=== PATIENT | female | born 1990 | race Caucasian/White ===

== ENCOUNTER 2018-11-08 15:29 | Observation (INO) | payer BC ==
[2018-11-08] MEDS ORDERED: Lactated Ringers 1,000 ML IV ONE (17:01)
[2018-11-08] MEDS ORDERED: hydrOXYzine Pamoate 25 MG Cap PO ONE (18:34)
[2018-11-08] MEDS: Lactated Ringers 1,000 ML IV SCH (18:35)
[2018-11-08 19:32] LABS: CHLORIDE,CL 98 mmol/L (98-107); SODIUM,NA 130 mmol/L (136-145)
[2018-11-08] MEDS ORDERED: Betamethasone Acetate/Betamethasone Sod Phosphate 30 MG/5 ML MDV IM ONE (20:19)
[2018-11-08] MEDS ORDERED: Terbutaline 1 MG/ML SDV SUBCUT ONE (20:19)
[2018-11-09] MEDS ORDERED: NIFEdipine 10 MG Cap PO SCH
[2018-11-09] MEDS: NIFEdipine 10 MG Cap PO SCH ×6 (00:37→20:50)
[2018-11-09] MEDS: Lactated Ringers 1,000 ML IV SCH (01:05)
--- NOTE | 2018-11-09 02:42 | HP ---
DATE OF : 1990 PRIMARY CARE PHYSICIAN: None PCP CHIEF COMPLAINT: Not feeling well and contractions. HISTORY: This is a 28-year-old female, G3, P1-0-1-1. She presents at 35 and 4/7 weeks' gestation with a feeling of malaise, anxiety, palpitations and some pelvic pressure. Upon arrival, she denied contractions; however, after arrival, she began having regular contractions every 1 to 2 minutes. Initially, she was closed and thick and over approximately 8-hour time period, she changed to 2 cm and 50% effaced. Therefore, decision was made to proceed with admission and management for labor. She reports good movement. She denies loss of fluid. She denies any abnormal vaginal discharge or odor. She has care with Dr. Montiel. She is blood type O positive, rubella immune, RPR negative, hepatitis B negative. Her last Pap was in September 2017 and was normal. PAST MEDICAL HISTORY: Significant for dental surgery and laparoscopic cholecystectomy. Prior hospitalization is childbirth and influenza as a child. FAMILY HISTORY: Significant for asthma, dementia and pancreatic cancer. SOCIAL HISTORY: She is , sexually active. She denies use of tobacco, alcohol, or street drugs. ALLERGY: To azithromycin which causes hives. OB HISTORY: In 2016, she had a 39-week delivery of an 8-pound 13 ounce male. In 2018, she had a first-trimester miscarriage. Current , EDC is 12/09/2018 by LMP consistent with ultrasound at 9 weeks' gestation. Her care to this point has been uncomplicated. PHYSICAL EXAMINATION: VITAL SIGNS: Blood pressure is 117/71, pulse is 78. heart tones are 130s, moderate variability, accelerations present, no decelerations. Contractions have varied from every 1 to 2 minutes to rare to every 10 minutes. GENERAL: She is alert and oriented. No acute distress. NECK: Supple without lymphadenopathy or thyromegaly. LUNGS: Clear bilaterally. CARDIOVASCULAR: Regular rate without murmur. ABDOMEN: Soft, gravid, nontender. EXTREMITIES: Show trace edema. PELVIC: Vaginal exam 2 cm, 50%, -4 station. ASSESSMENT AND PLAN: 35 and 5/7 weeks' intrauterine with threatened labor. Group B Strep culture has been obtained. She received her first dose of betamethasone at 8 p.m. on 11/08/2018, and since she did change her cervix from closed to 2 cm was given the option for transfer to [facility] versus observation without tocolysis versus tocolysis with observation and steroids, and she at this point desires oral tocolysis with nifedipine with betamethasone. Group B strep has been obtained. If she dilates to 3 to 4 cm, we will start ampicillin for group B strep prophylaxis, and otherwise continue observation with oral nifedipine, and if she is stable after 2nd dose of betamethasone, may be discharged tomorrow. KAMRON / LEIGHTON /[id number]
[2018-11-09] MEDS ORDERED: NIFEdipine 10 MG Cap PO PRN (06:40)
--- NOTE | 2018-11-09 11:46 | US ---
HISTORY: Evaluate growth. Gestational age by LMP is 36 weeks 0 days corresponding to an EDC of 12/07/2018. COMPARISON: None. FINDINGS: Single living intrauterine fetus in transverse position. Anterior placenta. No evidence for placenta previa. Amniotic fluid volume is within normal with largest deep fibers pocket 5.7 cm. heart rate of 117 beats per minute. Estimated weight of 3518 g at the 97th percentile. Estimated gestational age by today`s ultrasound 11/27/2018. IMPRESSION: Single living intrauterine fetus in transverse position. Amniotic fluid volume is within normal. Estimated weight 3518 g at the 97th percentile. Today`s measurements are at 37 weeks 3 days with EDC of 11/27/2018. The fetus is measuring 10 days larger than expected dating on today`s study. Dictated by Svitlana Koch MD @ Nov 09 2018 11:39AM Signed by Dr. Svitlana Koch @ Nov 09 2018 11:45AM
[2018-11-09 20:51] VITALS: BP 114/71
[2018-11-09] MEDS ORDERED: Betamethasone Acetate/Betamethasone Sod Phosphate 30 MG/5 ML MDV IM SCH ×2 (23:30)
== END 2018-11-09 21:39 | disposition home or self-care (01) ==
LOC: MW.OBCHECK 15:29 → MW.OB 15:32 → MW.OBCHECK 23:48
PROVIDERS: ADMIT Obstetrics & Gynecology; ATTEND Obstetrics & Gynecology
DX: O47.1 False labor at or after 37 completed weeks of gestation (principal); Z3A.37 37 weeks gestation of pregnancy; Z88.1 Allergy status to other antibiotic agents
CPT/HCPCS: 36415; 59025; 76815; 80053; 81003; 85027; 86850; 86900; 86901; 87081; 96360; 96361; 96372; A9270; G0378; J0702; J3105; J7120

== ENCOUNTER 2018-12-02 18:09 | Inpatient (IN) | payer BC ==
[2018-12-02] MEDS ORDERED: Lidocaine 1% 50 ML MDV INJECT PRN (18:13)
[2018-12-02] MEDS ORDERED: Tranexamic Acid 1,000 MG in Sodium Chloride 0.9% 100 ML IV PRN (18:13)
[2018-12-02] MEDS ORDERED: Misoprostol 200 MCG Tab PO PRN (18:13)
[2018-12-02] MEDS ORDERED: Water For Irrigation,Sterile 1,000 ML Container IRR PRN (18:13)
[2018-12-02] MEDS ORDERED: Carboprost Tromethamine 250 MCG/1 ML Amp IM PRN (18:13)
[2018-12-02] MEDS ORDERED: Sodium Chloride 0.9% 10 ML Syringe FLUSH PRN (18:13)
[2018-12-02] MEDS ORDERED: Sodium Chloride 0.9% 10 ML SDV IV PRN (18:13)
[2018-12-02] MEDS ORDERED: Methylergonovine 0.2 MG/1 ML Amp IM PRN (18:13)
[2018-12-02] MEDS ORDERED: Butorphanol 1 MG/ML SDV IVPUSH PRN (18:13)
[2018-12-02] MEDS ORDERED: Nalbuphine 10 MG/1 ML Vial IVPUSH PRN (18:13)
[2018-12-02] MEDS ORDERED: Lactated Ringers 1,000 ML IV SCH (18:15)
[2018-12-02] MEDS ORDERED: Oxytocin/0.9 % Sodium Chloride 30 UNIT/500 ML BAG IV SCH (18:15)
[2018-12-02] MEDS ORDERED: Ampicillin 2 GM in Sodium Chloride 0.9% 100 ML IV ONE (18:16)
[2018-12-02] MEDS ORDERED: fentaNYL 100 MCG/2 ML SDV ONE (19:01)
[2018-12-02] MEDS ORDERED: Bupivacaine 0.25% 10 ML SDV ONE (19:03)
--- NOTE | 2018-12-02 19:20 | PCM.PREANE ---
Preanesthetic Assessment - Procedure Proposed Procedure: FREDO for precipitous labor - Anesthesia/Transfusion/Family Hx Anesthesia History: Prior Anesthesia Without Reaction Transfusion History: No Prior Transfusion(s) - Review of Systems General: No Symptoms Pulmonary: No Symptoms Cardiovascular: No Symptoms Gastrointestinal: No Symptoms Neurological: No Symptoms Other: Reports: None - Physical Assessment Height: 1.65 m Weight: 74.843 kg ASA Class: 2E Mental Status: Alert & Oriented x3 Dentition: Reports: Normal Dentition ROM/Head Extension: Full Lungs: Clear to Auscultation Cardiovascular: Regular Rate - Lab Values: Laboratory Last Values WBC 10.66 K/uL (4.0-11.0) 12/02/18 18:23 RBC 4.68 M/uL (4.30-5.90) 12/02/18 18:23 Hgb 12.9 g/dL (12.0-16.0) 12/02/18 18:23 Hct 38.1 % (36.0-46.0) 12/02/18 18:23 MCV 81.4 fL (80.0-98.0) 12/02/18 18:23 MCH 27.6 pg (27.0-32.0) 12/02/18 18:23 MCHC 33.9 g/dL (31.0-37.0) 12/02/18 18:23 RDW Std Deviation 36.2 fl (28.0-62.0) 12/02/18 18:23 RDW Coeff of Chidi 13 % (11.0-15.0) 12/02/18 18:23 Plt Count 234 K/uL (150-400) 12/02/18 18:23 MPV 10.80 fL (7.40-12.00) 12/02/18 18:23 - Allergies Allergies/Adverse Reactions: Allergies Allergy/AdvReac Type Severity Reaction Status Date / Time azithromycin Allergy Intermediate Hives Verified 11/28/18 18:50 - Acknowledgements Anesthesia Type Planned: Epidural Pt an Appropriate Candidate for the Planned Anesthesia: Yes Alternatives and Risks of Anesthesia Discussed w Pt/Guardian: Yes Pt/Guardian Understands and Agrees with Anesthesia Plan: Yes PreAnesthesia Questionnaire Gastrointestinal History: Reports: Cholelithiasis, Irritable Bowel Syndrome [employer]IST History: Reports: - Infectious Disease History Infectious Disease History: Reports: Chicken Pox - Past Surgical History HEENT Surgical History: Reports: Oral Surgery - HOME MEDS Home Medications: Home Meds L.acidoph,Paracasei, B.lactis [Probiotic] 1 tab PO DAILY 11/08/18 [History] PNV95/Ferrous Fumarate/FA [ Tablet] 1 tab PO DAILY 11/08/18 [History] - CURRENT (IN HOUSE) MEDS Current Meds: Current Medications Butorphanol Tartrate (Stadol) 1 mg IVPUSH ASDIRECTED PRN PRN Reason: Pain Last Admin: 12/02/18 18:43 Dose: 1 mg Carboprost Tromethamine (Hemabate Ds) 250 mcg IM ASDIRECTED PRN PRN Reason: Post Hemorrhage Lactated Ringer's (Ringers, Lactated) 1,000 mls @ 150 mls/hr IV ASDIRECTED VON Last Admin: 12/02/18 18:31 Dose: 150 mls/hr Oxytocin/Sodium Chloride (Oxytocin 30 Unit/500 Ml-Ns) 30 unit in 500 mls @ 999 mls/hr IV TITRATE VON Tranexamic Acid 1,000 mg/ (Sodium Chloride) 110 mls @ 660 mls/hr IV ONETIME PRN PRN Reason: Bleeding Lidocaine HCl (Xylocaine 1%) 50 ml INJECT ONETIME PRN PRN Reason: Laceration repair Methylergonovine Maleate (Methergine) 0.2 mg IM ASDIRECTED PRN PRN Reason: Post Hemorrhage Misoprostol (Cytotec) 200 mcg PO ONETIME PRN PRN Reason: Post Hemorrhage Nalbuphine HCl (Nubain) 10 mg IVPUSH ASDIRECTED PRN PRN Reason: Pain (severe 7-10) Sodium Chloride (Saline Flush) 10 ml FLUSH ASDIRECTED PRN PRN Reason: Keep Vein Open Sodium Chloride (Normal Saline) 10 ml IV ASDIRECTED PRN PRN Reason: IV Use Sterile Water (Sterile Water For Irrigation) 1,000 ml IRR ASDIRECTED PRN PRN Reason: delivery Discontinued Medications Bupivacaine HCl (Sensorcaine-Mpf 0.25%) Confirm Administered Dose 10 ml .ROUTE .STK-MED ONE Stop: 12/02/18 19:04 Fentanyl (Sublimaze) Confirm Administered Dose 100 mcg .ROUTE .STK-MED ONE Stop: 12/02/18 19:02 Ampicillin Sodium 2 gm/ Sodium (Chloride) 100 mls @ 200 mls/hr IV ONETIME ONE Stop: 12/02/18 18:45 Last Admin: 12/02/18 18:32 Dose: 200 mls/hr Fentanyl/Bupivacaine HCl (Ntkyomia-Jipkd-Yg 2 Mcg/Ml-0.125%) Confirm Administered Dose 100 mls @ as directed .ROUTE .STK-MED ONE Stop: 12/02/18 19:02
--- NOTE | 2018-12-02 19:25 | PCM.OPNOTE ---
<Antonella Johns - Last Filed: 12/02/18 19:21> - General Post-Op/Procedure Note Date of Surgery/Procedure: 12/02/18 Operative Procedure(s): Vaginal delivery Findings: of liveborn male . Apgars 8/8. Weight pending. 3vc. Placenta intact. Pre Op Diagnosis: at 39/0 weeks IUP in labor. GBS positive, did not get full prophylaxis Post-Op Diagnosis: same Anesthesia Technique: Epidural Primary Surgeon: Genesis Nuñez Organization Development Consultant: Antonella Johns Role of Organization Development Consultant: 4th year medical student EBL in mLs: 100 Condition: Good <Genesis Nuñez - Last Filed: 12/02/18 19:44> - General Post-Op/Procedure Note Complications: none Free Text/Narrative:: H&P dictation #[id number] Op report dictation #[id number]
[2018-12-02] MEDS ORDERED: Lanolin 100% Cream 7 GM Tube TOP PRN (19:46)
[2018-12-02] MEDS ORDERED: oxyCODONE 5 MG Tab PO PRN (19:46)
[2018-12-02] MEDS ORDERED: Benzocaine/Menthol 20%-0.5% Spray 78 GM Cannister TOP PRN (19:46)
[2018-12-02] MEDS ORDERED: Simethicone 80 MG Tab.Chew PO PRN (19:46)
[2018-12-02] MEDS ORDERED: Famotidine 20 MG Tab PO PRN (19:46)
[2018-12-02] MEDS ORDERED: Acetaminophen 500 MG Tab PO PRN (19:46)
[2018-12-02] MEDS ORDERED: Witch Hazel Medicated Pads 40/Jar TOP PRN (19:46)
[2018-12-02] MEDS ORDERED: Bisacodyl 10 MG Supp RECTAL PRN (19:46)
[2018-12-02] MEDS ORDERED: diphenhydrAMINE 50 MG Cap PO PRN (19:46)
[2018-12-02] MEDS ORDERED: Docusate Sodium 100 MG Cap PO PRN (19:46)
[2018-12-02] MEDS ORDERED: Ondansetron 4 MG/2 ML SDV IVPUSH PRN (19:46)
[2018-12-02] MEDS ORDERED: Aluminum Hydroxide/Magnesium Hydroxide/Simethicone Susp 30 ML Cup PO PRN (19:46)
[2018-12-02] MEDS: Ibuprofen 800 MG Tab PO PRN (22:22)
--- NOTE | 2018-12-03 02:08 | OR ---
SURGEON: Genesis Nuñez MD DATE OF PROCEDURE: 12/02/2018 PREOPERATIVE DIAGNOSES: 1. A 28-year-old G2, P1-0-0-1, at 39 weeks and 0 days' gestation. 2. Labor. 3. Spontaneous rupture of membranes. 4. GBS positive. POSTOPERATIVE DIAGNOSES: 1. A 28-year-old G2, P1-0-0-1, at 39 weeks and 0 days' gestation. 2. Labor. 3. Spontaneous rupture of membranes. 4. GBS positive, s/p 1 dose of Ampicillin. PROCEDURE: Spontaneous vaginal delivery. PRIMARY SURGEON: Genesis Nuñez MD TIE MILL OPERATOR: Antonella oJhns, medical student. FINDINGS: A live male infant in cephalic presentation. Apgars 8 and 8 at one and five minutes respectively. Weight pending. Placenta intact and with 3-vessel cord. No perineal laceration. ESTIMATED BLOOD LOSS: 100 mL. DESCRIPTION OF PROCEDURE: The patient quickly progressed to complete cervical dilation as epidural was being placed. She pushed to spontaneous vaginal delivery of a live male with Apgars of 8 and 8 at one and five minutes respectively. Weight pending. The head was delivered followed quickly by the shoulders and the remainder of the body. The infant was placed on the maternal abdomen. The cord was clamped and cut after approximately 90 seconds of delayed cord clamping. The placenta was delivered intact and with 3-vessel cord via the Dominguez-Smallwood maneuver. The perineum was inspected, and no lacerations were noted. Fundus was firm with minimal bleeding. The patient and baby tolerated the procedure well. They are in their room in stable condition. [id number] / MODL /[id number]
--- NOTE | 2018-12-03 03:09 | HP ---
DATE OF : 1990 PRIMARY CARE PHYSICIAN: None PCP CHIEF COMPLAINT: Contractions. HISTORY OF PRESENT ILLNESS: This is a 28-year-old, G2, P1-0-0-1, at 39 weeks and 0 days gestation, complaining of contractions that began at 4:30 this afternoon. She reported positive movement. She denied vaginal bleeding and leakage of fluid. PAST MEDICAL HISTORY: History of influenza. PAST SURGICAL HISTORY: Laparoscopic cholecystectomy. PAST OBSTETRICAL HISTORY: Spontaneous vaginal delivery x1. PAST GYNECOLOGIC HISTORY: Pap smear in 2018 negative. Denies history of abnormal Pap smear. Denies history of STDs. FAMILY HISTORY: Noncontributory. SOCIAL HISTORY: Denies tobacco, alcohol, or drug abuse. MEDICATIONS: vitamins. ALLERGIES: Azithromycin. REVIEW OF SYSTEMS: Negative except as in HPI. PHYSICAL EXAMINATION: VITAL SIGNS: Blood pressure 113/77 and heart rate 95. GENITOURINARY: Sterile vaginal exam: 6, 90, -2. heart tones 120, moderate variability, positive accelerations, negative decelerations. More[place], contractions every 1 to 3 minutes. Ultrasound, cephalic. ASSESSMENT: This is a 28-year-old, , at 39 weeks 0 days gestation, in labor. PLAN: GBS positive, start ampicillin for GBS prophylaxis. While interviewing the patient, spontaneous rupture of membranes occurred with clear fluid noted. [id number] / MODL /[id number]
--- NOTE | 2018-12-03 07:27 | PCM.PNPP ---
<Antonella Johns - Last Filed: 12/03/18 07:24> - General Info Date of Service: 12/03/18 Functional Status: Reports: Pain Controlled - Review of Systems General: Reports: No Symptoms. Denies: Fever, Chills HEENT: Reports: No Symptoms. Denies: Headaches Pulmonary: Reports: No Symptoms. Denies: Shortness of Breath Cardiovascular: Reports: No Symptoms. Denies: Chest Pain, Palpitations Gastrointestinal: Reports: Abdominal Pain (Cramping with ) Genitourinary: Reports: Dysuria (mild) Musculoskeletal: Reports: No Symptoms Skin: Reports: No Symptoms Neurological: Reports: No Symptoms Psychiatric: Reports: No Symptoms - General Info Date of Service: 12/03/18 - Patient Data Vital Signs - Most Recent: Last Vital Signs Temp 97.2 F 12/03/18 04:30 Pulse 67 12/03/18 04:30 Resp 17 12/03/18 04:30 BP 110/68 12/03/18 04:30 Pulse Ox 96 12/03/18 04:30 Weight - Most Recent: 57.153 kg Lab Results - Last 24 Hours: Laboratory Results - last 24 hr 12/02/18 12/02/18 12/03/18 Range/Units 18:23 18:23 05:32 WBC 10.66 (4.0-11.0) K/uL RBC 4.68 (4.30-5.90) M/uL Hgb 12.9 10.0 L (12.0-16.0) g/dL Hct 38.1 30.0 L (36.0-46.0) % MCV 81.4 (80.0-98.0) fL MCH 27.6 (27.0-32.0) pg MCHC 33.9 (31.0-37.0) g/dL RDW Std Deviation 36.2 (28.0-62.0) fl RDW Coeff of Chidi 13 (11.0-15.0) % Plt Count 234 (150-400) K/uL MPV 10.80 (7.40-12.00) fL Blood Type O POSITIVE Antibody Screen NEGATIVE Med Orders - Current: Current Medications Acetaminophen (Tylenol Extra Strength) 500 mg PO Q4H PRN PRN Reason: Pain Acetaminophen (Tylenol Extra Strength) 1,000 mg PO Q6H PRN PRN Reason: Pain Al Hydroxide/Mg Hydroxide (Mag-Al Plus) 30 ml PO Q8H PRN PRN Reason: Heartburn Benzocaine/Menthol (Dermoplast Pain Relief 20%-0.5% Browder) 78 gm TOP ASDIRECTED PRN PRN Reason: Perineal Comfort Measure Last Admin: 12/02/18 22:23 Dose: 78 gm Bisacodyl (Dulcolax) 10 mg RECTAL ONETIME PRN PRN Reason: Constipation Butorphanol Tartrate (Stadol) 1 mg IVPUSH ASDIRECTED PRN PRN Reason: Pain Last Admin: 12/02/18 18:43 Dose: 1 mg Carboprost Tromethamine (Hemabate Ds) 250 mcg IM ASDIRECTED PRN PRN Reason: Post Hemorrhage Diphenhydramine HCl (Benadryl) 50 mg PO BEDTIME PRN PRN Reason: Insomnia Docusate Sodium (Colace) 100 mg PO BID PRN PRN Reason: Constipation Emollient Ointment (Lansinoh Hpa) 0 gm TOP ASDIRECTED PRN PRN Reason: Sore Nipples Last Admin: 12/02/18 22:23 Dose: 7 gm Famotidine (Pepcid) 20 mg PO BID PRN PRN Reason: Heartburn Lactated Ringer's (Ringers, Lactated) 1,000 mls @ 150 mls/hr IV ASDIRECTED VON Last Admin: 12/02/18 18:31 Dose: 150 mls/hr Oxytocin/Sodium Chloride (Oxytocin 30 Unit/500 Ml-Ns) 30 unit in 500 mls @ 999 mls/hr IV TITRATE [facility] Last Admin: 12/02/18 19:10 Dose: 999 mls/hr Tranexamic Acid 1,000 mg/ (Sodium Chloride) 110 mls @ 660 mls/hr IV ONETIME PRN PRN Reason: Bleeding Ibuprofen (Motrin) 800 mg PO Q8H PRN PRN Reason: Pain Last Admin: 12/02/18 22:22 Dose: 800 mg Lidocaine HCl (Xylocaine 1%) 50 ml INJECT ONETIME PRN PRN Reason: Laceration repair Methylergonovine Maleate (Methergine) 0.2 mg IM ASDIRECTED PRN PRN Reason: Post Hemorrhage Misoprostol (Cytotec) 200 mcg PO ONETIME PRN PRN Reason: Post Hemorrhage Nalbuphine HCl (Nubain) 10 mg IVPUSH ASDIRECTED PRN PRN Reason: Pain (severe 7-10) Ondansetron HCl (Zofran) 4 mg IVPUSH Q6H PRN PRN Reason: Nausea/Vomiting Oxycodone HCl (Oxycodone) 5 mg PO Q4H PRN PRN Reason: Pain Simethicone (Simethicone) 80 mg PO Q4H PRN PRN Reason: Gas Sodium Chloride (Saline Flush) 10 ml FLUSH ASDIRECTED PRN PRN Reason: Keep Vein Open Sodium Chloride (Normal Saline) 10 ml IV ASDIRECTED PRN PRN Reason: IV Use Sterile Water (Sterile Water For Irrigation) 1,000 ml IRR ASDIRECTED PRN PRN Reason: delivery Last Admin: 12/02/18 20:29 Dose: 1,000 ml Witch Tricia (Tucks) 1 pad TOP ASDIRECTED PRN PRN Reason: comfort care Discontinued Medications Bupivacaine HCl (Sensorcaine-Mpf 0.25%) Confirm Administered Dose 10 ml .ROUTE .STK-MED ONE Stop: 12/02/18 19:04 Fentanyl (Sublimaze) Confirm Administered Dose 100 mcg .ROUTE .STK-MED ONE Stop: 12/02/18 19:02 Ampicillin Sodium 2 gm/ Sodium (Chloride) 100 mls @ 200 mls/hr IV ONETIME ONE Stop: 12/02/18 18:45 Last Admin: 12/02/18 18:32 Dose: 200 mls/hr Fentanyl/Bupivacaine HCl (Akumdxob-Seter-Zj 2 Mcg/Ml-0.125%) Confirm Administered Dose 100 mls @ as directed .ROUTE .STK-MED ONE Stop: 12/02/18 19:02 - Infant Interaction Infant Disposition, : [place] in Room with Family Infant Interaction: Holding Infant Feeding: Breastfed ; Nursed Well Support Person: - Recovery Exam Fundal Tone: Firm Fundal Level: 1 Fingerbreadths Below Umbilicus Fundal Placement: Midline Lochia Amount: Small Lochia Color: Rubra/Red Perineum Description: Intact, Minimal Bruising/Swelling Episiotomy/Laceration: None Bladder Status: Nonpalpable, Voiding Urinary Elimination: Voided - Exam General: Alert, Oriented HEENT: Pupils Equal Neck: Supple Lungs: Clear to Auscultation, Normal Respiratory Effort Cardiovascular: Regular Rate, Regular Rhythm GI/Abdominal Exam: Normal Bowel Sounds, Soft, Non-Tender, No Organomegaly, No Distention, No Abnormal Bruit, No Mass, Pelvis Stable Extremities: Normal Inspection, Normal Range of Motion, Non-Tender, No Pedal Edema, Normal Capillary Refill Skin: Warm, Dry, Intact Neurological: No New Focal Deficit Psy/Mental Status: Alert, Normal Affect, Normal Mood - Problem List & Annotations (1) Vaginal delivery SNOMED Code(s): 190391697 Code(s): O80 - ENCOUNTER FOR FULL-TERM UNCOMPLICATED DELIVERY Status: Acute Current Visit: No - Problem List Review Problem List Initiated/Reviewed/Updated: Yes - Assessment Assessment:: PPD1 well Pain well controlled Moderate lochia rubra - Plan Plan:: Regular diet Pain control PRN Routine care May discharge to home when stable at 24h <Svitlana Montiel - Last Filed: 12/03/18 10:05> - Patient Data Vital Signs - Most Recent: Last Vital Signs Temp 36.2 C 12/03/18 04:30 Pulse 67 12/03/18 04:30 Resp 17 12/03/18 09:23 BP 110/68 12/03/18 04:30 Pulse Ox 96 12/03/18 04:30 Lab Results - Last 24 Hours: Laboratory Results - last 24 hr 12/02/18 12/02/18 12/03/18 Range/Units 18:23 18:23 05:32 WBC 10.66 (4.0-11.0) K/uL RBC 4.68 (4.30-5.90) M/uL Hgb 12.9 10.0 L (12.0-16.0) g/dL Hct 38.1 30.0 L (36.0-46.0) % MCV 81.4 (80.0-98.0) fL MCH 27.6 (27.0-32.0) pg MCHC 33.9 (31.0-37.0) g/dL RDW Std Deviation 36.2 (28.0-62.0) fl RDW Coeff of Chidi 13 (11.0-15.0) % Plt Count 234 (150-400) K/uL MPV 10.80 (7.40-12.00) fL Blood Type O POSITIVE Antibody Screen NEGATIVE Med Orders - Current: Current Medications Acetaminophen (Tylenol Extra Strength) 500 mg PO Q4H PRN PRN Reason: Pain Acetaminophen (Tylenol Extra Strength) 1,000 mg PO Q6H PRN PRN Reason: Pain Last Admin: 12/03/18 07:33 Dose: 1,000 mg Al Hydroxide/Mg Hydroxide (Mag-Al Plus) 30 ml PO Q8H PRN PRN Reason: Heartburn Benzocaine/Menthol (Dermoplast Pain Relief 20%-0.5% Browder) 78 gm TOP ASDIRECTED PRN PRN Reason: Perineal Comfort Measure Last Admin: 12/02/18 22:23 Dose: 78 gm Bisacodyl (Dulcolax) 10 mg RECTAL ONETIME PRN PRN Reason: Constipation Butorphanol Tartrate (Stadol) 1 mg IVPUSH ASDIRECTED PRN PRN Reason: Pain Last Admin: 12/02/18 18:43 Dose: 1 mg Carboprost Tromethamine (Hemabate Ds) 250 mcg IM ASDIRECTED PRN PRN Reason: Post Hemorrhage Diphenhydramine HCl (Benadryl) 50 mg PO BEDTIME PRN PRN Reason: Insomnia Docusate Sodium (Colace) 100 mg PO BID PRN PRN Reason: Constipation Emollient Ointment (Lansinoh Hpa) 0 gm TOP ASDIRECTED PRN PRN Reason: Sore Nipples Last Admin: 12/02/18 22:23 Dose: 7 gm Famotidine (Pepcid) 20 mg PO BID PRN PRN Reason: Heartburn Lactated Ringer's (Ringers, Lactated) 1,000 mls @ 150 mls/hr IV ASDIRECTED VON Last Admin: 12/02/18 18:31 Dose: 150 mls/hr Oxytocin/Sodium Chloride (Oxytocin 30 Unit/500 Ml-Ns) 30 unit in 500 mls @ 999 mls/hr IV TITRATE VON Last Admin: 12/02/18 19:10 Dose: 999 mls/hr Tranexamic Acid 1,000 mg/ (Sodium Chloride) 110 mls @ 660 mls/hr IV ONETIME PRN PRN Reason: Bleeding Ibuprofen (Motrin) 800 mg PO Q8H PRN PRN Reason: Pain Last Admin: 12/03/18 07:33 Dose: 800 mg Lidocaine HCl (Xylocaine 1%) 50 ml INJECT ONETIME PRN PRN Reason: Laceration repair Methylergonovine Maleate (Methergine) 0.2 mg IM ASDIRECTED PRN PRN Reason: Post Hemorrhage Misoprostol (Cytotec) 200 mcg PO ONETIME PRN PRN Reason: Post Hemorrhage Nalbuphine HCl (Nubain) 10 mg IVPUSH ASDIRECTED PRN PRN Reason: Pain (severe 7-10) Ondansetron HCl (Zofran) 4 mg IVPUSH Q6H PRN PRN Reason: Nausea/Vomiting Oxycodone HCl (Oxycodone) 5 mg PO Q4H PRN PRN Reason: Pain Simethicone (Simethicone) 80 mg PO Q4H PRN PRN Reason: Gas Sodium Chloride (Saline Flush) 10 ml FLUSH ASDIRECTED PRN PRN Reason: Keep Vein Open Sodium Chloride (Normal Saline) 10 ml IV ASDIRECTED PRN PRN Reason: IV Use Sterile Water (Sterile Water For Irrigation) 1,000 ml IRR ASDIRECTED PRN PRN Reason: delivery Last Admin: 12/02/18 20:29 Dose: 1,000 ml Witch Tricia (Tucks) 1 pad TOP ASDIRECTED PRN PRN Reason: comfort care Last Admin: 12/03/18 07:34 Dose: 1 tub Discontinued Medications Bupivacaine HCl (Sensorcaine-Mpf 0.25%) Confirm Administered Dose 10 ml .ROUTE .STK-MED ONE Stop: 12/02/18 19:04 Fentanyl (Sublimaze) Confirm Administered Dose 100 mcg .ROUTE .STK-MED ONE Stop: 12/02/18 19:02 Ampicillin Sodium 2 gm/ Sodium (Chloride) 100 mls @ 200 mls/hr IV ONETIME ONE Stop: 12/02/18 18:45 Last Admin: 12/02/18 18:32 Dose: 200 mls/hr Fentanyl/Bupivacaine HCl (Uhdafske-Loyqk-Uh 2 Mcg/Ml-0.125%) Confirm Administered Dose 100 mls @ as directed .ROUTE .STK-MED ONE Stop: 12/02/18 19:02 - Plan Plan:: Patient seen and examined--agree with above other than patient will stay 48 hours given GBBS + status. Continue cares. Anticipate discharge tomorrow.
[2018-12-03] MEDS: Ibuprofen 800 MG Tab PO PRN ×2 (07:33→15:46)
[2018-12-03] MEDS: Acetaminophen 500 MG Tab PO PRN ×2 (07:33→20:56)
--- NOTE | 2018-12-03 09:23 | PCM48HPAN ---
Post Anesthesia Note - EVALUATION WITHIN 48HRS OF ANESTHETIC Vital Signs in Normal Range: Yes Patient Participated in Evaluation: Yes Respiratory Function Stable: Yes Airway Patent: Yes Cardiovascular Function Stable: Yes Hydration Status Stable: Yes Pain Control Satisfactory: Yes Nausea and Vomiting Control Satisfactory: Yes Mental Status Recovered: Yes Resp Rate: 17 - COMMENTS/OBSERVATIONS Free Text/Narrative:: Patient comfortable at this time, no signs or symptoms of anesthesia related problems.
[2018-12-04] MEDS: Ibuprofen 800 MG Tab PO PRN ×2 (00:59→11:13)
--- NOTE | 2018-12-04 07:44 | PCM.PNPP ---
<Antonella Johns - Last Filed: 12/04/18 07:41> - General Info Date of Service: 12/04/18 Functional Status: Reports: Pain Controlled - Review of Systems General: Reports: No Symptoms. Denies: Fever, Chills HEENT: Reports: No Symptoms. Denies: Headaches Pulmonary: Reports: No Symptoms. Denies: Shortness of Breath Cardiovascular: Reports: No Symptoms. Denies: Chest Pain, Palpitations Gastrointestinal: Reports: No Symptoms. Denies: Abdominal Pain Genitourinary: Reports: No Symptoms (Feeling some pressure in her pelvis. Pain is well controlled. ). Denies: Dysuria Musculoskeletal: Reports: No Symptoms Skin: Reports: No Symptoms Neurological: Reports: No Symptoms Psychiatric: Reports: No Symptoms - General Info Date of Service: 12/04/18 - Patient Data Vital Signs - Most Recent: Last Vital Signs Temp 97.8 F 12/04/18 04:00 Pulse 66 12/04/18 04:00 Resp 16 12/04/18 04:00 BP 121/79 12/04/18 04:00 Pulse Ox 95 12/04/18 04:00 Weight - Most Recent: 57.153 kg Med Orders - Current: Current Medications Acetaminophen (Tylenol Extra Strength) 500 mg PO Q4H PRN PRN Reason: Pain Acetaminophen (Tylenol Extra Strength) 1,000 mg PO Q6H PRN PRN Reason: Pain Last Admin: 12/03/18 20:56 Dose: 1,000 mg Al Hydroxide/Mg Hydroxide (Mag-Al Plus) 30 ml PO Q8H PRN PRN Reason: Heartburn Benzocaine/Menthol (Dermoplast Pain Relief 20%-0.5% [place]) 78 gm TOP ASDIRECTED PRN PRN Reason: Perineal Comfort Measure Last Admin: 12/02/18 22:23 Dose: 78 gm Bisacodyl (Dulcolax) 10 mg RECTAL ONETIME PRN PRN Reason: Constipation Butorphanol Tartrate (Stadol) 1 mg IVPUSH ASDIRECTED PRN PRN Reason: Pain Last Admin: 12/02/18 18:43 Dose: 1 mg Carboprost Tromethamine (Hemabate Ds) 250 mcg IM ASDIRECTED PRN PRN Reason: Post Hemorrhage Diphenhydramine HCl (Benadryl) 50 mg PO BEDTIME PRN PRN Reason: Insomnia Docusate Sodium (Colace) 100 mg PO BID PRN PRN Reason: Constipation Emollient Ointment (Lansinoh Hpa) 0 gm TOP ASDIRECTED PRN PRN Reason: Sore Nipples Last Admin: 12/02/18 22:23 Dose: 7 gm Famotidine (Pepcid) 20 mg PO BID PRN PRN Reason: Heartburn Lactated Ringer's (Ringers, Lactated) 1,000 mls @ 150 mls/hr IV ASDIRECTED [facility] Last Admin: 12/02/18 18:31 Dose: 150 mls/hr Oxytocin/Sodium Chloride (Oxytocin 30 Unit/500 Ml-Ns) 30 unit in 500 mls @ 999 mls/hr IV TITRATE [facility] Last Admin: 12/02/18 19:10 Dose: 999 mls/hr Tranexamic Acid 1,000 mg/ (Sodium Chloride) 110 mls @ 660 mls/hr IV ONETIME PRN PRN Reason: Bleeding Ibuprofen (Motrin) 800 mg PO Q8H PRN PRN Reason: Pain Last Admin: 12/04/18 00:59 Dose: 800 mg Lidocaine HCl (Xylocaine 1%) 50 ml INJECT ONETIME PRN PRN Reason: Laceration repair Methylergonovine Maleate (Methergine) 0.2 mg IM ASDIRECTED PRN PRN Reason: Post Hemorrhage Misoprostol (Cytotec) 200 mcg PO ONETIME PRN PRN Reason: Post Hemorrhage Nalbuphine HCl (Nubain) 10 mg IVPUSH ASDIRECTED PRN PRN Reason: Pain (severe 7-10) Ondansetron HCl (Zofran) 4 mg IVPUSH Q6H PRN PRN Reason: Nausea/Vomiting Oxycodone HCl (Oxycodone) 5 mg PO Q4H PRN PRN Reason: Pain Simethicone (Simethicone) 80 mg PO Q4H PRN PRN Reason: Gas Sodium Chloride (Saline Flush) 10 ml FLUSH ASDIRECTED PRN PRN Reason: Keep Vein Open Sodium Chloride (Normal Saline) 10 ml IV ASDIRECTED PRN PRN Reason: IV Use Sterile Water (Sterile Water For Irrigation) 1,000 ml IRR ASDIRECTED PRN PRN Reason: delivery Last Admin: 12/02/18 20:29 Dose: 1,000 ml Witjessenia Tricia (Tucks) 1 pad TOP ASDIRECTED PRN PRN Reason: comfort care Last Admin: 12/03/18 07:34 Dose: 1 tub Discontinued Medications Bupivacaine HCl (Sensorcaine-Mpf 0.25%) Confirm Administered Dose 10 ml .ROUTE .STK-MED ONE Stop: 12/02/18 19:04 Fentanyl (Sublimaze) Confirm Administered Dose 100 mcg .ROUTE .STK-MED ONE Stop: 12/02/18 19:02 Ampicillin Sodium 2 gm/ Sodium (Chloride) 100 mls @ 200 mls/hr IV ONETIME ONE Stop: 12/02/18 18:45 Last Admin: 12/02/18 18:32 Dose: 200 mls/hr Fentanyl/Bupivacaine HCl (Sbhawixe-Wnvyi-Dy 2 Mcg/Ml-0.125%) Confirm Administered Dose 100 mls @ as directed .ROUTE .STK-MED ONE Stop: 12/02/18 19:02 - Infant Interaction Infant Disposition, : [place] in Room with Family Infant Interaction: Holding Infant Feeding: Breastfed ; Nursed Well Support Person: - Recovery Exam Fundal Tone: Firm Fundal Level: 2 Fingerbreadths Below Umbilicus Fundal Placement: Midline Lochia Amount: Scant Lochia Color: Rubra/Red Perineum Description: Intact, Minimal Bruising/Swelling, Hemorrhoids Episiotomy/Laceration: None Bladder Status: Voiding Urinary Elimination: Voided - Exam General: Alert, Oriented HEENT: Pupils Equal Neck: Supple Lungs: Clear to Auscultation, Normal Respiratory Effort Cardiovascular: Regular Rate, Regular Rhythm GI/Abdominal Exam: Normal Bowel Sounds, Soft, Non-Tender, No Organomegaly, No Distention, No Abnormal Bruit, No Mass, Pelvis Stable Extremities: Normal Inspection, Normal Range of Motion, Non-Tender, No Pedal Edema, Normal Capillary Refill Skin: Warm, Dry, Intact Neurological: No New Focal Deficit Psy/Mental Status: Alert, Normal Affect, Normal Mood - Problem List & Annotations (1) Vaginal delivery SNOMED Code(s): 896626780 Code(s): O80 - ENCOUNTER FOR FULL-TERM UNCOMPLICATED DELIVERY Status: Acute Current Visit: No - Problem List Review Problem List Initiated/Reviewed/Updated: Yes - Assessment Assessment:: PPD2, 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 Pain well controlled Minimal lochia mariusz Would like to discharge home today - Plan Plan:: Regular diet Pain control PRN Routine care May discharge home today after 48h due to GBS+ status without adequate prophylaxis <Svitlana Montiel - Last Filed: 12/04/18 08:37> - Patient Data Vital Signs - Most Recent: Last Vital Signs Temp 36.6 C 12/04/18 04:00 Pulse 66 12/04/18 04:00 Resp 16 12/04/18 04:00 BP 121/79 12/04/18 04:00 Pulse Ox 95 12/04/18 04:00 Med Orders - Current: Current Medications Acetaminophen (Tylenol Extra Strength) 500 mg PO Q4H PRN PRN Reason: Pain Acetaminophen (Tylenol Extra Strength) 1,000 mg PO Q6H PRN PRN Reason: Pain Last Admin: 12/03/18 20:56 Dose: 1,000 mg Al Hydroxide/Mg Hydroxide (Mag-Al Plus) 30 ml PO Q8H PRN PRN Reason: Heartburn Benzocaine/Menthol (Dermoplast Pain Relief 20%-0.5% [place]) 78 gm TOP ASDIRECTED PRN PRN Reason: Perineal Comfort Measure Last Admin: 12/02/18 22:23 Dose: 78 gm Bisacodyl (Dulcolax) 10 mg RECTAL ONETIME PRN PRN Reason: Constipation Butorphanol Tartrate (Stadol) 1 mg IVPUSH ASDIRECTED PRN PRN Reason: Pain Last Admin: 12/02/18 18:43 Dose: 1 mg Carboprost Tromethamine (Hemabate Ds) 250 mcg IM ASDIRECTED PRN PRN Reason: Post Hemorrhage Diphenhydramine HCl (Benadryl) 50 mg PO BEDTIME PRN PRN Reason: Insomnia Docusate Sodium (Colace) 100 mg PO BID PRN PRN Reason: Constipation Emollient Ointment (Lansinoh Hpa) 0 gm TOP ASDIRECTED PRN PRN Reason: Sore Nipples Last Admin: 12/02/18 22:23 Dose: 7 gm Famotidine (Pepcid) 20 mg PO BID PRN PRN Reason: Heartburn Lactated Ringer's (Ringers, Lactated) 1,000 mls @ 150 mls/hr IV ASDIRECTED [facility] Last Admin: 12/02/18 18:31 Dose: 150 mls/hr Oxytocin/Sodium Chloride (Oxytocin 30 Unit/500 Ml-Ns) 30 unit in 500 mls @ 999 mls/hr IV TITRATE [facility] Last Admin: 12/02/18 19:10 Dose: 999 mls/hr Tranexamic Acid 1,000 mg/ (Sodium Chloride) 110 mls @ 660 mls/hr IV ONETIME PRN PRN Reason: Bleeding Ibuprofen (Motrin) 800 mg PO Q8H PRN PRN Reason: Pain Last Admin: 12/04/18 00:59 Dose: 800 mg Lidocaine HCl (Xylocaine 1%) 50 ml INJECT ONETIME PRN PRN Reason: Laceration repair Methylergonovine Maleate (Methergine) 0.2 mg IM ASDIRECTED PRN PRN Reason: Post Hemorrhage Misoprostol (Cytotec) 200 mcg PO ONETIME PRN PRN Reason: Post Hemorrhage Nalbuphine HCl (Nubain) 10 mg IVPUSH ASDIRECTED PRN PRN Reason: Pain (severe 7-10) Ondansetron HCl (Zofran) 4 mg IVPUSH Q6H PRN PRN Reason: Nausea/Vomiting Oxycodone HCl (Oxycodone) 5 mg PO Q4H PRN PRN Reason: Pain Simethicone (Simethicone) 80 mg PO Q4H PRN PRN Reason: Gas Sodium Chloride (Saline Flush) 10 ml FLUSH ASDIRECTED PRN PRN Reason: Keep Vein Open Sodium Chloride (Normal Saline) 10 ml IV ASDIRECTED PRN PRN Reason: IV Use Sterile Water (Sterile Water For Irrigation) 1,000 ml IRR ASDIRECTED PRN PRN Reason: delivery Last Admin: 12/02/18 20:29 Dose: 1,000 ml Witch Tricia (Tucks) 1 pad TOP ASDIRECTED PRN PRN Reason: comfort care Last Admin: 12/03/18 07:34 Dose: 1 tub Discontinued Medications Bupivacaine HCl (Sensorcaine-Mpf 0.25%) Confirm Administered Dose 10 ml .ROUTE .STK-MED ONE Stop: 12/02/18 19:04 Fentanyl (Sublimaze) Confirm Administered Dose 100 mcg .ROUTE .STK-MED ONE Stop: 12/02/18 19:02 Ampicillin Sodium 2 gm/ Sodium (Chloride) 100 mls @ 200 mls/hr IV ONETIME ONE Stop: 12/02/18 18:45 Last Admin: 12/02/18 18:32 Dose: 200 mls/hr Fentanyl/Bupivacaine HCl (Cgjslmcz-Zyubc-Xz 2 Mcg/Ml-0.125%) Confirm Administered Dose 100 mls @ as directed .ROUTE .STK-MED ONE Stop: 12/02/18 19:02 - Plan Plan:: Patient seen and examined, agree with discharge to home today. Discharge instructions reviewed. Follow up at [facility] 6 weeks
[2018-12-04 19:34] VITALS: BP 121/76; PULSE 70
== END 2018-12-04 20:30 | disposition home or self-care (01) | DRG 560 ==
LOC: MW.OBCHECK 18:09 → MW.OB 18:10 → MW.OBCHECK 18:14 → OBSVTOIN 19:09 → MW.OB 12-03 00:17
PROVIDERS: ADMIT Obstetrics & Gynecology; ATTEND Obstetrics & Gynecology
PROC: 10E0XZZ Delivery of Products of Conception, External Approach (ICD-10-PCS; principal; 2018-12-02)
PROC: 4A1HXCZ Monitoring of Products of Conception, Cardiac Rate, External Approach (ICD-10-PCS; 2018-12-02)
DX: O99.824 Streptococcus B carrier state complicating childbirth (principal); Z3A.39 39 weeks gestation of pregnancy; Z37.0 Single live birth
CPT/HCPCS: 01967; 36415; 59025; 59409; 85014; 85018; 85027; 86850; 86900; 86901; A9270-GY; J0290; J0595; J2590; J7030; J7120

== ENCOUNTER 2019-03-27 02:52 | Emergency (ER) | payer BC ==
--- NOTE | 2019-03-27 03:26 | EDM.PDOC ---
ED HPI GENERAL MEDICAL PROBLEM - General Chief Complaint: General Stated Complaint: NUMB ON LEFT SIDE OF BODY Time Seen by Provider: 03/27/19 04:11 - History of Present Illness INITIAL COMMENTS - FREE TEXT/NARRATIVE: HISTORY AND PHYSICAL: History of present illness: Patient's a 28-year-old white female who 3 months who presents with a concern of left-sided numbness this is primarily in her face, she states her arm and leg also felt strange she denies any chest pain shortness of breath fever nausea vomiting diarrhea urinary symptoms or other complaints she is otherwise healthy she denies drugs alcohol or other concern. She has no history of anxiety or panic attacks although she did query whether this may represent a panic attack. Review of systems: As per history of present illness and below otherwise all systems reviewed and negative. Past medical history: As per history of present illness and as reviewed below otherwise noncontributory. Surgical history: As per history of present illness and as reviewed below otherwise noncontributory. Social history: No reported history of drug or alcohol abuse. Family history: As per history of present illness and as reviewed below otherwise noncontributory. Physical exam: HEENT: Atraumatic, normocephalic, pupils reactive, negative for conjunctival pallor or scleral icterus, mucous membranes moist, throat clear, neck supple, nontender, trachea midline. Lungs: Clear to auscultation, breath sounds equal bilaterally, chest nontender. Heart: S1S2, regular, negative for clicks, rubs, or JVD. Abdomen: Soft, nondistended, nontender. Negative for masses or hepatosplenomegaly. Negative for costovertebral tenderness. Pelvis: Stable nontender. Genitourinary: Deferred. Rectal: Deferred. Extremities: Atraumatic, negative for cords or calf pain. Neurovascular unremarkable. Neuro: Awake, alert, oriented. Cranial nerves II through XII unremarkable. Cerebellum unremarkable. Motor and sensory unremarkable throughout. Exam nonfocal. Diagnostics: CBC CMP troponin PT/INR chest x-ray EKG CT brain UA Therapeutics: None Impression: #1 subjective paresthesia improved #2 medical screening exam Definitive disposition and diagnosis as appropriate pending reevaluation and review of above. - Related Data Allergies Allergy/AdvReac Type Severity Reaction Status Date / Time azithromycin Allergy Intermediate Hives Verified 03/27/19 02:57 Home Meds: Home Meds . 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: Musculoskeletal History: Reports: None Neurological History: Reports: None Psychiatric History: Reports: None Endocrine/Metabolic History: Reports: None Insulin Pump Model and Maintenance Repairman: None Hematologic History: Reports: None Immunologic History: Reports: None Oncologic (Cancer) History: Reports: None Dermatologic History: Reports: None - Infectious Disease History Infectious Disease History: Reports: None - Past Surgical History Head Surgeries/Procedures: Reports: None HEENT Surgical History: Reports: Oral Surgery Social & Family History - Family History Family Medical History: Noncontributory Cardiac: Reports: Hypertension GI: Reports: Diverticulitis, Diverticulosis OBGYN: Reports: Endometriosis, Musculoskeletal: Reports: Back pain, Chronic Psychiatric: Reports: Depression Endocrine/Metabolic: Reports: Diabetes, type II, Obesity/MBI 30+ Oncologic: Reports: Pancreatic, Skin - Tobacco Use Smoking Status *Q: Never Smoker - Caffeine Use Caffeine Use: Reports: Coffee - Recreational Drug Use Recreational Drug Use: No ED ROS GENERAL - Review of Systems Review Of Systems: Comprehensive ROS is negative, except as noted in HPI. ED EXAM, GENERAL - Physical Exam Exam: See Below (See dictation) Course - Vital Signs Text/Narrative:: Patient's emergency department course has been unremarkable I discussed the patient admission for observation at this time she declines patient understands risk-benefit as does her . She'll follow up with primary medical doctor Last Recorded V/S: Last Vital Signs Temp 36.3 C 03/27/19 02:55 Pulse 96 03/27/19 02:55 Resp 18 03/27/19 02:55 BP 126/79 03/27/19 02:55 Pulse Ox 98 03/27/19 02:55 - Orders/Labs/Meds Orders: Active Orders 24 hr Category Date Time Status Blood Glucose Check, Bedside [RC] ONETIME Care 03/27/19 02:58 Active Cardiac Monitoring [RC] . DIRECTED Care 03/27/19 02:58 Active Labs: Laboratory Tests 03/27/19 03/27/19 03/27/19 Range/Units 03:00 03:00 03:05 WBC 4.89 (4.0-11.0) K/uL RBC 4.97 (4.30-5.90) M/uL Hgb 13.6 (12.0-16.0) g/dL Hct 41.3 (36.0-46.0) % MCV 83.1 (80.0-98.0) fL MCH 27.4 (27.0-32.0) pg MCHC 32.9 (31.0-37.0) g/dL RDW Std Deviation 38.8 (28.0-62.0) fl RDW Coeff of Chidi 13 (11.0-15.0) % Plt Count 276 (150-400) K/uL MPV 9.00 (7.40-12.00) fL Neut % (Auto) 40.9 L (48.0-80.0) % Lymph % (Auto) 43.4 H (16.0-40.0) % Grand % (Auto) 11.0 (0.0-15.0) % Eos % (Auto) 4.3 (0.0-7.0) % Baso % (Auto) 0.4 (0.0-1.5) % Neut # (Auto) 2.0 (1.4-5.7) K/uL Lymph # (Auto) 2.1 (0.6-2.4) K/uL Grand # (Auto) 0.5 (0.0-0.8) K/uL Eos # (Auto) 0.2 (0.0-0.7) K/uL Baso # (Auto) 0.0 (0.0-0.1) K/uL Nucleated RBC % 0.0 /100WBC Nucleated RBCs # 0 K/uL INR Sodium (136-145) mmol/L Potassium (3.5-5.1) mmol/L Chloride (98-107) mmol/L Carbon Dioxide (21.0-32.0) mmol/L BUN (7.0-18.0) mg/dL Creatinine (0.6-1.0) mg/dL Est Cr Clr Drug Dosing Estimated GFR (MDRD) ml/min Glucose (74-106) mg/dL Calcium (8.5-10.1) mg/dL Total Bilirubin (0.2-1.0) mg/dL AST (15-37) IU/L ALT (14-63) IU/L Alkaline Phosphatase (46-116) U/L Troponin I (0.000-0.056) ng/mL Total Protein (6.4-8.2) g/dL Albumin (3.4-5.0) g/dL Globulin (2.6-4.0) g/dL Albumin/Globulin Ratio (0.9-1.6) Urine Color YELLOW Urine Appearance CLEAR Urine pH 6.0 (5.0-8.0) Ur Specific [place] 1.015 (1.001-1.035) Urine Protein NEGATIVE (NEGATIVE) mg/dL Urine Glucose (UA) NEGATIVE (NEGATIVE) mg/dL Urine Ketones NEGATIVE (NEGATIVE) mg/dL Urine Occult Blood NEGATIVE (NEGATIVE) Urine Nitrite NEGATIVE (NEGATIVE) Urine Bilirubin NEGATIVE (NEGATIVE) Urine Urobilinogen 0.2 (<2.0) EU/dL Ur Leukocyte Esterase NEGATIVE (NEGATIVE) Urine HCG, Qual NEGATIVE (NEGATIVE) 03/27/19 03/27/19 Range/Units 03:05 03:05 WBC (4.0-11.0) K/uL RBC (4.30-5.90) M/uL Hgb (12.0-16.0) g/dL Hct (36.0-46.0) % MCV (80.0-98.0) fL MCH (27.0-32.0) pg MCHC (31.0-37.0) g/dL RDW Std Deviation (28.0-62.0) fl RDW Coeff of Chidi (11.0-15.0) % Plt Count (150-400) K/uL MPV (7.40-12.00) fL Neut % (Auto) (48.0-80.0) % Lymph % (Auto) (16.0-40.0) % Grand % (Auto) (0.0-15.0) % Eos % (Auto) (0.0-7.0) % Baso % (Auto) (0.0-1.5) % Neut # (Auto) (1.4-5.7) K/uL Lymph # (Auto) (0.6-2.4) K/uL Grand # (Auto) (0.0-0.8) K/uL Eos # (Auto) (0.0-0.7) K/uL Baso # (Auto) (0.0-0.1) K/uL Nucleated RBC % /100WBC Nucleated RBCs # K/uL INR 1.00 Sodium 141 (136-145) mmol/L Potassium 3.4 L (3.5-5.1) mmol/L Chloride 104 (98-107) mmol/L Carbon Dioxide 27.2 (21.0-32.0) mmol/L BUN 17 (7.0-18.0) mg/dL Creatinine 0.7 (0.6-1.0) mg/dL Est Cr Clr Drug Dosing TNP Estimated GFR (MDRD) > 60.0 ml/min Glucose 134 H (74-106) mg/dL Calcium 9.3 (8.5-10.1) mg/dL Total Bilirubin 0.3 (0.2-1.0) mg/dL AST 18 (15-37) IU/L ALT 28 (14-63) IU/L Alkaline Phosphatase 97 (46-116) U/L Troponin I < 0.050 (0.000-0.056) ng/mL Total Protein 8.0 (6.4-8.2) g/dL Albumin 4.4 (3.4-5.0) g/dL Globulin 3.6 (2.6-4.0) g/dL Albumin/Globulin Ratio 1.2 (0.9-1.6) Urine Color Urine Appearance Urine pH (5.0-8.0) Ur Specific [place] (1.001-1.035) Urine Protein (NEGATIVE) mg/dL Urine Glucose (UA) (NEGATIVE) mg/dL Urine Ketones (NEGATIVE) mg/dL Urine Occult Blood (NEGATIVE) Urine Nitrite (NEGATIVE) Urine Bilirubin (NEGATIVE) Urine Urobilinogen (<2.0) EU/dL Ur Leukocyte Esterase (NEGATIVE) Urine HCG, Qual (NEGATIVE) Departure - Departure Time of Disposition: 04:10 Disposition: Home, Self-Care 01 Condition: Good Clinical Impression: Paresthesia, Encounter for medical screening examination - Discharge Information Referrals: PCP,None [Primary Care Provider] - Forms: ED Department Discharge Additional Instructions: The following information is given to patients seen in the emergency department who are being discharged to home. This information is to outline your options for follow-up care. We provide all patients seen in our emergency department with a follow-up referral. The need for follow-up, as well as the timing and circumstances, are variable depending upon the specifics of your emergency department visit. If you don't have a primary care physician on staff, we will provide you with a referral. We always advise you to contact your personal physician following an emergency department visit to inform them of the circumstance of the visit and for follow-up with them and/or the need for any referrals to a consulting specialist. The emergency department will also refer you to a specialist when appropriate. This referral assures that you have the opportunity for followup care with a specialist. All of these measure are taken in an effort to provide you with optimal care, which includes your followup. Under all circumstances we always encourage you to contact your private physician who remains a resource for coordinating your care. When calling for followup care, please make the office aware that this follow-up is from your recent emergency room visit. If for any reason you are refused follow-up, please contact the [facility] emergency department at and asked to speak to the emergency department charge nurse. Follow-up primary medical doctor EMILIA and return as needed as discussed - My Orders Last 24 Hours: My Active Orders 03/27/19 02:58 Blood Glucose Check, Bedside [RC] ONETIME Cardiac Monitoring [RC] . DIRECTED - Assessment/Plan Last 24 Hours: My Active Orders 03/27/19 02:58 Blood Glucose Check, Bedside [RC] ONETIME Cardiac Monitoring [RC] . DIRECTED
[2019-03-27 03:38] LABS: BLOOD UREA NITROGEN,BUN 17 mg/dL (7.0-18.0); CARBON DIOXIDE,CO2 27.2 mmol/L (21.0-32.0); CHLORIDE,CL 104 mmol/L (98-107); GLUCOSE RANDOM 134 mg/dL (74-106); POTASSIUM,K 3.4 mmol/L (3.5-5.1); SODIUM,NA 141 mmol/L (136-145)
--- NOTE | 2019-03-27 03:48 | CR ---
Indication: Numbness Technique: Chest 1 view Comparison: None Findings/Impression: Cardiovascular and mediastinum: Heart size and vasculature are normal in caliber and appearance. Mediastinum is within normal limits. Lungs and pleural space: Lungs are clear. No sign of infiltrate or mass. No sign of pleural effusion. No pneumothorax. Bones and soft tissues: No significant findings. Dictated by Venita Gonzales MD @ Mar 27 2019 3:42AM Signed by Dr. Venita Gonzales @ Mar 27 2019 3:45AM
--- NOTE | 2019-03-27 03:50 | CT ---
INDICATION: Numbness on the left side of the body TECHNIQUE: Head CT without contrast. COMPARISON: None FINDINGS: CSF spaces: Within normal limits for age. Brain parenchyma: Normal mcfadden-white junction no sign of mass, hemorrhage, or midline shift. Skull base and calvarium: The visualized paranasal sinuses and mastoid air cells demonstrate no acute or significant findings. The visualized orbits are grossly unremarkable. No skull fractures. IMPRESSION: No acute abnormality. Please note that all CT scans at this facility use dose modulation, iterative reconstruction, and/or weight-based dosing when appropriate to reduce radiation dose to as low as reasonably achievable. Dictated by Venita Gonzales MD @ Mar 27 2019 3:45AM Signed by Dr. Venita Gonzales @ Mar 27 2019 3:47AM
[2019-03-27] MEDS ORDERED: ALPRAZolam 0.5 MG Tab PO ONE (04:09)
[2019-03-27 04:19] VITALS: BP 98/58; PULSE 73
== END 2019-03-27 04:28 | disposition home or self-care (01) ==
LOC: MW.ED 02:52
DX: R20.2 Paresthesia of skin (principal); Z88.1 Allergy status to other antibiotic agents
CPT/HCPCS: 36415; 70450; 71045; 80053; 81003; 81025; 84484; 85025; 85610; 93005; 99284; A9270

== ENCOUNTER 2021-09-06 12:28 | Emergency (ER) | payer BC ==
[2021-09-06] MEDS ORDERED: Sodium Chloride 0.9% 10 ML Syringe FLUSH PRN (12:29)
[2021-09-06] MEDS ORDERED: Sodium Chloride 0.9% 2.5 ML Syringe FLUSH PRN (12:29)
[2021-09-06] MEDS ORDERED: Sodium Chloride 0.9% 1,000 ML IV ONE (13:26)
[2021-09-06] MEDS ORDERED: Metoclopramide 10 MG/2 ML SDV IVPUSH ONE (13:26)
[2021-09-06] MEDS ORDERED: diphenhydrAMINE 50 MG/ML SDV IVPUSH ONE (13:26)
[2021-09-06] MEDS ORDERED: Ketorolac 30 MG/ML SDV IVPUSH ONE (13:26)
[2021-09-06 13:39] LABS: BLOOD UREA NITROGEN,BUN 12 mg/dL (7.0-18.0); CARBON DIOXIDE,CO2 23.2 mmol/L (21.0-32.0); CHLORIDE,CL 102 mmol/L (98-107); GLUCOSE RANDOM 128 mg/dL (74-106); POTASSIUM,K 3.7 mmol/L (3.5-5.1); SODIUM,NA 137 mmol/L (136-145)
[2021-09-06 14:52] VITALS: BP 96/58; PULSE 66
== END 2021-09-06 14:46 | disposition home or self-care (01) ==
LOC: MW.ED 12:28
DX: G43.909 Migraine, unspecified, not intractable, without status migrainosus (principal); R42 Dizziness and giddiness; I10 Essential (primary) hypertension; E11.9 Type 2 diabetes mellitus without complications; Z88.1 Allergy status to other antibiotic agents
CPT/HCPCS: 36415; 70450; 80053; 84484; 84703; 85025; 93005; 96361; 96374; 96375; 99284; J1200; J1885; J2765; J3490; J7030; 93010